=== PATIENT | female | born 1945 | race Caucasian/White ===

== ENCOUNTER 2017-08-08 08:52 | Inpatient (IN) | payer MEDICARE, OTHER ==
[~2017-08-08 08:52] MED LIST: Bisacodyl 5 MG Tab PO PRN; Docusate Sodium 100 MG Cap PO PRN; HYDROmorphone 0.5 MG/0.5 ML Syringe IVPUSH PRN; Lidocaine 1%/Sod Bicarbonate in NS 8.4% 1 ML Syringe IV PRN; Magnesium Hydroxide 400 MG/5 ML Susp 30 ML Cup PO PRN; Naloxone 0.4 MG/ML SDV IVPUSH PRN; Sennosides 8.6 MG Tab PO PRN; Sodium Chloride 0.9% 10 ML Syringe FLUSH PRN; diphenhydrAMINE 50 MG/ML SDV IVPUSH PRN
[2017-08-08] MEDS: Lactated Ringers 1,000 ML IV SCH ×3 (09:35→21:15)
[2017-08-08] MEDS ORDERED: fentaNYL 100 MCG/2 ML SDV ONE (09:50)
[2017-08-08] MEDS ORDERED: Propofol 200 MG/20 ML SDV ONE ×3 (09:50→12:33)
[2017-08-08] MEDS ORDERED: Midazolam 1 MG/ML 2 ML SDV ONE (09:51)
[2017-08-08] MEDS ORDERED: Lidocaine 1% 4 ML ONE (09:53)
[2017-08-08] MEDS ORDERED: Morphine PF 10 MG/10 ML SDV ONE (09:56)
--- NOTE | 2017-08-08 09:56 | PCM.PREANE ---
Preanesthetic Assessment - Procedure Proposed Procedure: LTKA - Anesthesia/Transfusion/Family Hx Anesthesia History: Prior Anesthesia Without Reaction Family History of Anesthesia Reaction: No Transfusion History: No Prior Transfusion(s) Intubation History: Unknown - Review of Systems General: No Symptoms Pulmonary: No Symptoms Cardiovascular: No Symptoms Gastrointestinal: No Symptoms, Other Neurological: No Symptoms, Headache Other: Reports: None - Physical Assessment NPO Status Date: 08/07/17 NPO Status Time: 22:30 Pulse: 85 O2 Sat by Pulse Oximetry: 98 Respiratory Rate: 16 Blood Pressure: 155/87 Temperature: 98.7 F Vital Signs: Last Vital Signs Temp 98.9 F 08/08/17 09:10 Pulse 85 08/08/17 09:10 Resp 16 08/08/17 09:10 BP 155/87 H 08/08/17 09:10 Pulse Ox 98 08/08/17 09:10 ASA Class: 2 Mental Status: Alert & Oriented x3 Dentition: Reports: Normal Dentition ROM/Head Extension: Full Lungs: Clear to Auscultation, Normal Respiratory Effort Cardiovascular: Regular Rate, Regular Rhythm - Lab Values: Laboratory Last Values MRSA (PCR) Negative 07/26/17 09:25 - Allergies Allergies/Adverse Reactions: Allergies Allergy/AdvReac Type Severity Reaction Status Date / Time amoxicillin AdvReac Nausea and Verified 08/08/17 07:06 Vomiting erythromycin base AdvReac Nausea and Verified 08/08/17 07:06 Vomiting morphine AdvReac Anxiety Verified 08/08/17 07:06 neomycin AdvReac Nausea Verified 08/08/17 07:06 - Blood Blood Available: Yes - Anesthesia Plan Beta Julian: Metoprolol Med Last Dose Date: 08/08/17 Med Last Dose Time: 05:00 - Acknowledgements Anesthesia Type Planned: Spinal Pt an Appropriate Candidate for the Planned Anesthesia: Yes Alternatives and Risks of Anesthesia Discussed w Pt/Guardian: Yes Pt/Guardian Understands and Agrees with Anesthesia Plan: Yes PreAnesthesia Questionnaire HEENT History: Reports: Impaired Vision, Other (See Below) Other HEENT History: impacted cerumen, reading glasses Cardiovascular History: Reports: High Cholesterol, Hypertension Respiratory History: Reports: None Gastrointestinal History: Reports: GERD, Irritable Bowel Syndrome, Other (See Below) Other Gastrointestinal History: abdominal adhesions Genitourinary History: Reports: UTI, Recurrent 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 (See Below) Other OB/BYN History: vaginitis, ovarian cyst Musculoskeletal History: Reports: Arthritis, Other (See Below) Other Musculoskeletal History: leg pain, knee pain Neurological History: Reports: Migraines Psychiatric History: Reports: None Endocrine/Metabolic History: Reports: None Hematologic History: Reports: None Immunologic History: Reports: None Oncologic (Cancer) History: Reports: None Dermatologic History: Reports: Other (See Below) Other Dermatologic History: periorbital dermatitis - Past Surgical History Head Surgeries/Procedures: Reports: None Cardiovascular Surgical History: Reports: None Respiratory Surgical History: Reports: None GI Surgical History: Reports: Appendectomy, Cholecystectomy, Other (See Below) Other GI Surgeries/Procedures: repair of leaky bile duct, exploratory laparotomy Female Surgical History: Reports: Section, Tubal Ligation Male Surgical History: Reports: None Endocrine Surgical History: Reports: None Neurological Surgical History: Reports: None Musculoskeletal Surgical History: Reports: Knee Replacement Oncologic Surgical History: Reports: None - SUBSTANCE USE Smoking Status *Q: Never Smoker Second Hand Smoke Exposure: No Recreational Drug Use History: No - HOME MEDS Home Medications: Home Meds Aspirin 81 mg PO DAILY 08/05/17 [History] Biotin 5,000 mcg PO DAILY 08/05/17 [History] Ca Carbonate/Vitamin D3/Vit K [Calcium + D Soft Chewable Tab] 2 tab PO DAILY [History] Losartan/Hydrochlorothiazide [Losartan-HCTZ 100-12.5 MG] 1 tab PO DAILY [History] Metoprolol Succinate 25 mg PO DAILY 08/05/17 [History] Omeprazole 20 mg PO DAILY 08/05/17 [History] atorvaSTATin [Lipitor] 10 mg PO DAILY 08/05/17 [History] - CURRENT (IN HOUSE) MEDS Current Meds: Current Medications Aspirin (Ecotrin) 325 mg PO BID CHARLES Bisacodyl (Dulcolax) 5 mg PO DAILY PRN PRN Reason: Constipation Morphine Sulfate 8 mg/Epinephrine HCl 0.3 mg/Cefuroxime Sodium 750 mg/Ketorolac Tromethamine 30 mg/Sodium Chloride 27.9 ml 0 mg .XX ONETIME ONE Stop: 08/08/17 10:46 Cyclobenzaprine HCl (Flexeril) 10 mg PO TID PRN PRN Reason: Spasms Diphenhydramine HCl (Benadryl) 25 mg IVPUSH Q4H PRN PRN Reason: Nausea Docusate Sodium (Colace) 100 mg PO BID PRN PRN Reason: Constipation Famotidine (Pepcid) 20 mg PO Q12H [facility] Hydromorphone HCl (Dilaudid) 0.2 mg IVPUSH Q2H PRN PRN Reason: Breakthrough Pain Lactated Ringer's (Ringers, Lactated) 1,000 mls @ 125 mls/hr IV ASDIRECTED [facility] Cefazolin Sodium/Dextrose 2 gm (/ Premix) 50 mls @ 100 mls/hr IV Q8H [facility] Stop: 08/09/17 09:59 Ketorolac Tromethamine (Toradol) 15 mg IVPUSH Q6H PRN PRN Reason: Pain Lidocaine/Sodium Bicarbonate (Buffered Lidocaine 1% In Ns 8.4%) 0.25 ml IV ONETIME PRN PRN Reason: Prior to IV Start Stop: 08/08/17 18:00 Magnesium Hydroxide (Milk Of Magnesia) 30 ml PO BID PRN PRN Reason: Constipation Naloxone HCl (Narcan) 0.1 mg IVPUSH Q5M PRN PRN Reason: Oversedation Ondansetron HCl (Zofran) 4 mg IVPUSH Q6H PRN PRN Reason: Nausea/Vomiting Oxycodone/Acetaminophen (Percocet 325-5 Mg) 1 - 2 tab PO Q4H PRN PRN Reason: Pain Senna (Senna) 8.6 mg PO BID PRN PRN Reason: Constipation Sodium Chloride (Saline Flush) 10 ml FLUSH ASDIRECTED PRN PRN Reason: Keep Vein Open Discontinued Medications Bupivacaine HCl (Marcaine 0.25%) Confirm Administered Dose 30 ml .ROUTE .STK- MED ONE Stop: 08/08/17 09:27 Cefazolin Sodium (Ancef) Confirm Administered Dose 2 gm .ROUTE .STK-MED ONE Stop: 08/08/17 09:27 Fentanyl (Sublimaze) Confirm Administered Dose 100 mcg .ROUTE .STK-MED ONE Stop: 08/08/17 09:51 Lidocaine HCl (Xylocaine-Mpf 1%) Confirm Administered Dose 4 mls @ as directed .ROUTE .STK-MED ONE Stop: 08/08/17 09:54 Iodine (Iodine 2% Mild Tincture) Confirm Administered Dose 30 ml .ROUTE .STK- MED ONE Stop: 08/08/17 09:27 Midazolam HCl (Versed 1 Mg/Ml) Confirm Administered Dose 2 mg .ROUTE .STK-MED ONE Stop: 08/08/17 09:52 Morphine Sulfate (Duramorph Pf) Confirm Administered Dose 10 mg .ROUTE .STK-MED ONE Stop: 08/08/17 09:57 Propofol (Diprivan 20 Ml) Confirm Administered Dose 400 mg .ROUTE .STK-MED ONE Stop: 08/08/17 09:51 Propofol (Diprivan 20 Ml) Confirm Administered Dose 200 mg .ROUTE .STK-MED ONE Stop: 08/08/17 09:52 Tranexamic Acid (Cyklokapron) Confirm Administered Dose 1,000 mg .ROUTE .STK- MED ONE Stop: 08/08/17 09:27 Vancomycin HCl (Vancomycin) Confirm Administered Dose 1 gm .ROUTE .STK-MED ONE Stop: 08/08/17 09:27
[2017-08-08] MEDS ORDERED: Lactated Ringers 1,000 ML ONE ×2 (11:15)
[2017-08-08] MEDS: Bupivacaine 0.25% 30 ML SDV ONE ×2 (11:51→12:16)
[2017-08-08] MEDS: ceFAZolin 1 GM Vial ONE ×2 (11:52→12:11)
[2017-08-08] MEDS: Morphine 8 MG, EPINEPHrine 0.3 MG, Cefuroxime 750 MG, Ketorolac 30 MG, Sodium Chloride ... ONE ×10 (11:52→12:15)
[2017-08-08] MEDS: Vancomycin 1 GM SDV ONE ×2 (11:53→12:18)
[2017-08-08] MEDS: Iodine/Sodium Iodide 2% Tincture 30 ML Bottle ONE ×2 (11:54→12:06)
[2017-08-08] MEDS ORDERED: Meperidine PF 50 MG/ML Syringe IVPUSH PRN (12:04)
[2017-08-08] MEDS ORDERED: Ondansetron 4 MG/2 ML SDV IVPUSH PRN (12:04)
[2017-08-08] MEDS ORDERED: fentaNYL 100 MCG/2 ML SDV IVPUSH PRN (12:04)
[2017-08-08] MEDS ORDERED: Phenylephrine 1% 10 MG/ML SDV ONE (12:30)
--- NOTE | 2017-08-08 13:04 | PCM.POSTAN ---
POST ANESTHESIA ASSESSMENT - MENTAL STATUS Mental Status: Alert, Oriented - VITAL SIGNS Pulse Rate: 77 SaO2: 100 Resp Rate: 12 Blood Pressure: 101/51 Temperature: 97.8 F - RESPIRATORY Respiratory Status: Respiratory Rate WNL, Airway Patent, O2 Saturation Stable - CARDIOVASCULAR CV Status: Pulse Rate WNL, Blood Pressure Stable - GASTROINTESTINAL GI Status: No Symptoms - PAIN Pain Score: 0 - POST OP HYDRATION Hydration Status: Adequate & Stable
--- NOTE | 2017-08-08 15:00 | CR ---
Left knee: AP and lateral views of the left knee were obtained. Comparison: No previous study. Left knee prosthesis is seen. Components are aligned. Underlying bony structures are intact. Soft tissue air is noted from the surgical procedure. Underlying bony structures are intact. Impression: 1. Satisfactory radiographic appearance of recently placed left knee prosthesis. Diagnostic code #2
[2017-08-08] MEDS ORDERED: Pneumococcal Polyvalent-23 Vaccine 0.5 ML SDV IM ONE (15:08)
[2017-08-08] MEDS: Cyclobenzaprine 10 MG Tab PO PRN (15:17)
[2017-08-08] MEDS: Ketorolac 15 MG/ML SDV IVPUSH PRN ×2 (15:17→21:15)
--- NOTE | 2017-08-08 16:40 | PCM.CONS ---
H&P History of Present Illness - General Date of Service: 08/08/17 Admit Problem/Dx: Admission Diagnosis/Problem Admission Diagnosis/Problem Osteoarthritis of knee Source of Information: Patient, Old Records, Provider, RN History Limitations: Reports: No Limitations - History of Present Illness Initial Comments - Free Text/Narative: Joi Larsen is a 72 yo female pt. of Dr. Christopher who is post-op day 0 of left TKA. Hospital medicine has been consulted for post-operative medical management. At this time she is resting in bed comfortably. She denies any current chest pain, palpitations, shortness of breath, nausea, or vomiting, although she reports she was slightly nauseated after receiving her last pain pill. She carries a history of: osteoarthritis, osteoporosis, HLD, HTN, GERD, irritable bowel syndrome, abdominal adhesions, recurrent UTIs, arthritis, bilateral knee pain, migraines, and prior right TKA. She was never a smoker. She is a full code. - Related Data Allergies/Adverse Reactions: Allergies Allergy/AdvReac Type Severity Reaction Status Date / Time amoxicillin AdvReac Nausea and Verified 08/08/17 10:14 Vomiting erythromycin base AdvReac Nausea and Verified 08/08/17 10:14 Vomiting morphine AdvReac Anxiety Verified 08/08/17 10:14 neomycin AdvReac Nausea Verified 08/08/17 10:14 Home Medications: Home Meds Aspirin 81 mg PO DAILY 08/05/17 [History] Biotin 5,000 mcg PO DAILY 08/05/17 [History] Ca Carbonate/Vitamin D3/Vit K [Calcium + D Soft Chewable Tab] 2 tab PO DAILY [History] Losartan/Hydrochlorothiazide [Losartan-HCTZ 100-12.5 MG] 1 tab PO DAILY [History] Metoprolol Succinate 25 mg PO DAILY 08/05/17 [History] Omeprazole 20 mg PO DAILY 08/05/17 [History] atorvaSTATin [Lipitor] 10 mg PO DAILY 08/05/17 [History] Past Medical History HEENT History: Reports: Impaired Vision, Other (See Below) Other HEENT History: impacted cerumen, reading glasses Cardiovascular History: Reports: High Cholesterol, Hypertension Respiratory History: Reports: None Gastrointestinal History: Reports: GERD, Irritable Bowel Syndrome, Other (See Below) Other Gastrointestinal History: abdominal adhesions Genitourinary History: Reports: UTI, Recurrent 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: Other (See Below) Other OB/BYN History: vaginitis, ovarian cyst Musculoskeletal History: Reports: Arthritis, Other (See Below) Other Musculoskeletal History: leg pain, knee pain Neurological History: Reports: Migraines Psychiatric History: Reports: None Endocrine/Metabolic History: Reports: None Hematologic History: Reports: None Immunologic History: Reports: None Oncologic (Cancer) History: Reports: None Dermatologic History: Reports: Other (See Below) Other Dermatologic History: periorbital dermatitis - Past Surgical History Head Surgeries/Procedures: Reports: None Cardiovascular Surgical History: Reports: None Respiratory Surgical History: Reports: None GI Surgical History: Reports: Appendectomy, Cholecystectomy, Other (See Below) Other GI Surgeries/Procedures: repair of leaky bile duct, exploratory laparotomy Female Surgical History: Reports: Section, Tubal Ligation Male Surgical History: Reports: None Endocrine Surgical History: Reports: None Neurological Surgical History: Reports: None Musculoskeletal Surgical History: Reports: Knee Replacement Oncologic Surgical History: Reports: None Social & Family History - Tobacco Use Smoking Status *Q: Never Smoker Second Hand Smoke Exposure: No - Caffeine Use Caffeine Use: Reports: Coffee - Recreational Drug Use Recreational Drug Use: No Drug Use in Last 12 Months: No H&P Review of Systems - Review of Systems: Review Of Systems: See Below General: Reports: No Symptoms HEENT: Reports: No Symptoms Pulmonary: Reports: No Symptoms Cardiovascular: Reports: No Symptoms Gastrointestinal: Reports: No Symptoms Genitourinary: Reports: No Symptoms Musculoskeletal: Reports: Joint Pain (Left knee 03/26. ) Skin: Reports: No Symptoms Psychiatric: Reports: No Symptoms Neurological: Reports: No Symptoms Hematologic/Lymphatic: Reports: No Symptoms Immunologic: Reports: No Symptoms Exam - Exam Exam: See Below - Vital Signs Vital Signs: Last Vital Signs Temp 97.9 F 08/08/17 15:29 Pulse 71 08/08/17 15:29 Resp 16 08/08/17 15:29 BP 146/90 H 08/08/17 15:29 Pulse Ox 99 08/08/17 15:29 Weight: 158 lb - Exam Quality Assessment: Urinary Catheter, DVT Prophylaxis General: Alert, Oriented, Cooperative HEENT: Conjunctiva Clear, EACs Clear, Hearing Intact, Mucosa Moist & [place], Nares Patent, Posterior Pharynx Clear, Pupils Equal, Pupils Reactive Neck: Supple, Trachea Midline. No: JVD Lungs: Clear to Auscultation, Normal Respiratory Effort Cardiovascular: Regular Rate, Regular Rhythm GI/Abdominal Exam: Normal Bowel Sounds, Soft, Non-Tender, No Organomegaly, No Abnormal Bruit, No Mass (Female) Exam: Deferred Rectal (Female) Exam: Deferred Back Exam: Normal Inspection, Full Range of Motion Extremities: No Pedal Edema, Normal Capillary Refill, Other (SRAVAN bandage on left leg. Bandage is dry and intact. ) Peripheral Pulses: 2+: Radial (L), Radial (R), Posterior Tibial (L), Dorsalis Pedis (L), Dorsalis Pedis (R) Skin: Warm, Dry, Intact Neurological: Cranial Nerves Intact (Grossly ) Neuro Extensive - Mental Status: Alert, Oriented x3, Normal Mood/Affect, Normal Cognition, Memory Intact Neuro Extensive - Motor, Sensory, Reflexes: CN II-XII Intact (Grossly ) Psychiatric: Alert, Normal Affect, Normal Mood Physical Exam Comments:: patient examined while lying in bed. Catheter remains in place. She is not on oxygen at this time. Consult PN Assessment/Plan POD#: 0 Procedures: Procedures ASSAY OF PREALBUMIN (07/13/17) ASSAY OF SERUM ALBUMIN (07/13/17) ASSAY THYROID STIM HORMONE (11/10/16) BONE IMAGING 3 PHASE (06/28/17) C-REACTIVE PROTEIN (07/13/17) CHEST X-RAY 2VW FRONTAL&LATL (07/22/17) COMPLETE CBC AUTOMATED (07/13/17) COMPLETE CBC W/AUTO DIFF WBC (12/06/16) COMPREHEN METABOLIC PANEL (12/06/16) DXA BONE DENSITY AXIAL (11/26/16) LIPID PANEL (11/10/16) MANUAL THERAPY 1/> REGIONS (05/03/16) MASSAGE THERAPY (05/03/16) METABOLIC PANEL TOTAL CA (07/13/17) MICROBE SUSCEPTIBLE DIFFUSE (03/18/17) MICROBE SUSCEPTIBLE DISK (03/18/17) OFFICE/OUTPATIENT VISIT EST (01/13/17) PROTHROMBIN TIME (07/13/17) PT EVALUATION (05/03/16) ROUTINE VENIPUNCTURE (07/13/17) SMEAR WET MOUNT SALINE/INK (03/18/17) THERAPEUTIC EXERCISES (05/03/16) THROMBOPLASTIN TIME PARTIAL (07/13/17) TRICHOMONAS ASSAY W/OPTIC (03/18/17) URINALYSIS AUTO W/O SCOPE (11/10/16) URINALYSIS AUTO W/SCOPE (07/14/17) URINE BACTERIA CULTURE (03/18/17) URINE CULTURE/COLONY COUNT (04/27/17) (1) S/P total knee arthroplasty SNOMED Code(s): 1478435655525, 6807865045001 Code(s): Z96.659 - PRESENCE OF UNSPECIFIED ARTIFICIAL KNEE JOINT Priority: High Current Visit: Yes Qualifiers: Laterality: left Qualified Code(s): Z96.652 - Presence of left artificial knee joint (2) Osteoarthritis SNOMED Code(s): 529624016 Code(s): M19.90 - UNSPECIFIED OSTEOARTHRITIS, UNSPECIFIED SITE Priority: High Current Visit: Yes Qualifiers: Osteoarthritis location: knee Osteoarthritis type: primary Laterality: left Qualified Code(s): M17.12 - Unilateral primary osteoarthritis, left knee (3) Adult idiopathic generalized osteoporosis SNOMED Code(s): 365568416 Code(s): M81.8 - OTHER OSTEOPOROSIS WITHOUT CURRENT PATHOLOGICAL FRACTURE Priority: Medium Current Visit: Yes (4) GERD (gastroesophageal reflux disease) SNOMED Code(s): 989280357 Code(s): K21.9 - GASTRO-ESOPHAGEAL REFLUX DISEASE WITHOUT ESOPHAGITIS Priority: Low Current Visit: Yes (5) HTN (hypertension) SNOMED Code(s): 86808321 Code(s): I10 - ESSENTIAL (PRIMARY) HYPERTENSION Priority: Low Current Visit: Yes Qualifiers: Hypertension type: essential hypertension Qualified Code(s): I10 - Essential (primary) hypertension (6) HLD (hyperlipidemia) SNOMED Code(s): 74029615 Code(s): E78.5 - HYPERLIPIDEMIA, UNSPECIFIED Priority: Low Current Visit : No Qualifiers: Hyperlipidemia type: unspecified Qualified Code(s): E78.5 - Hyperlipidemia , unspecified (7) IBS (irritable bowel syndrome) SNOMED Code(s): 95852301 Code(s): K58.9 - IRRITABLE BOWEL SYNDROME WITHOUT DIARRHEA Priority: Low Current Visit: Yes Qualifiers: Irritable bowel syndrome type: unspecified Qualified Code(s): K58.9 - Irritable bowel syndrome without diarrhea Problem List Initiated/Reviewed/Updated: Yes Plan: I/P: Acute: S/P left TKA post-operative day 0 -DVT and pain management per primary team -IS/RT -PT/OT -Monitor oxygen saturations -O2 as needed -Vital signs stable Osteoarthritis of the knee -Pain management as above Chronic: Osteoporosis HLD HTN GERD irritable bowel syndrome abdominal adhesions recurrent UTIs arthritis bilateral knee pain migraines prior right TKA Plan: CM/SW for discharge planning Other orders as listed above GI prophylaxis Home medications as indicated Routine AM labs Thank you for allowing us to participate in the care of this patient! Requesting Provider: Dr. Christopher Date Consult Requested: 08/08/17 Reason for Consult: Post-operative management Patient History Reviewed: Yes Admission H&P Reviewed: Yes Notified Requestor: Yes Time Spent (in minutes): 40
[2017-08-08] MEDS: Ondansetron 4 MG/2 ML SDV IVPUSH PRN (17:11)
--- NOTE | 2017-08-08 17:22 | PCM.OPNOTE ---
- General Post-Op/Procedure Note Date of Surgery/Procedure: 08/08/17 Operative Procedure(s): left total knee arthroplasty Pre Op Diagnosis: left knee osteoarthrosis Post-Op Diagnosis: Same Anesthesia Technique: Local, MAC, Spinal Primary Surgeon: Sebastien Christopher Anesthesia Provider: Ravin Lopez Retirement Actuary: Amelia Rodriguez Retirement Actuary: Trudy Vargas EBL in mLs: 200 Complications: None Condition: Good Free Text/Narrative:: Intake & Output 08/08/17 08/08/17 08/08/17 06:59 14:59 22:59 Intake Total 200 1400 Output Total 235 300 Balance -35 1100 size 4 femur size 3 tibia 9mm 29x9
[2017-08-08] MEDS: ceFAZolin 2 GM in Premix Bag 1 BAG IV SCH (17:34)
[2017-08-08] MEDS: Famotidine 20 MG Tab PO SCH (21:15)
[2017-08-08] MEDS ORDERED: Aluminum Hydroxide/Magnesium Hydroxide/Simethicone Susp 30 ML Cup PO PRN (23:13)
[2017-08-08] MEDS: Acetaminophen/oxyCODONE 325-5 MG Tab PO PRN (23:24)
[2017-08-09] MEDS: Cyclobenzaprine 10 MG Tab PO PRN ×2 (01:31→10:55)
[2017-08-09] MEDS: ceFAZolin 2 GM in Premix Bag 1 BAG IV SCH ×2 (01:32→10:10)
[2017-08-09] MEDS: Ketorolac 15 MG/ML SDV IVPUSH PRN (03:13)
[2017-08-09] MEDS: Ondansetron 4 MG/2 ML SDV IVPUSH PRN (04:49)
[2017-08-09] MEDS: Acetaminophen/oxyCODONE 325-5 MG Tab PO PRN ×3 (04:49→12:49)
--- NOTE | 2017-08-09 08:14 | PCM.CONSN ---
- General Info Date of Service: 08/09/17 Admission Dx/Problem (Free Text): Admission Diagnosis/Problem Admission Diagnosis/Problem Osteoarthritis of knee POD #1 s/p Lt TKA with Dr. Christopher No further nausea. Pain controlled. Working with PT; doing well. VSS; hgb 9.1 this am Functional Status: Reports: Pain Controlled, Tolerating Diet, Ambulating, Urinating, Incentive Spirometry. Denies: New Symptoms - Review of Systems General: Reports: No Symptoms HEENT: Reports: No Symptoms Pulmonary: Reports: No Symptoms Cardiovascular: Reports: No Symptoms Gastrointestinal: Reports: No Symptoms Genitourinary: Reports: No Symptoms Musculoskeletal: Reports: Leg Pain Skin: Reports: No Symptoms Neurological: Reports: No Symptoms Psychiatric: Reports: No Symptoms - Patient Data Vitals - Most Recent: Last Vital Signs Temp 99.0 F 08/09/17 01:38 Pulse 75 08/08/17 19:37 Resp 15 08/09/17 06:57 BP 109/49 L 08/09/17 01:38 Pulse Ox 92 L 08/09/17 06:57 Weight - Most Recent: 158 lb I&O - Last 24 Hours: Intake & Output 08/08/17 08/09/17 08/09/17 22:59 06:59 14:59 Intake Total 1800 400 Output Total 625 375 Balance 1175 25 Lab Results Last 24 Hours: Laboratory Results - last 24 hr 08/09/17 08/09/17 Range/Units 06:10 06:10 WBC 12.31 H (3.98-10.04) K/mm3 RBC 3.23 L (3.98-5.22) M/mm3 Hgb 9.1 L (11.2-15.7) gm/L Hct 28.1 L (34.1-44.9) % MCV 87.0 (79.4-94.8) fl MCH 28.2 (25.6-32.2) pg MCHC 32.4 (32.2-35.5) g/dl RDW Std Deviation 39.3 (36.4-46.3) fL Plt Count 187 (182-369) K/mm3 MPV 9.4 (9.4-12.3) fl Sodium 136 (136-145) mEq/L Potassium 3.7 (3.5-5.1) mEq/L Chloride 101 (98-107) mEq/L Carbon Dioxide 28 (21-32) mEq/L Anion Gap 10.7 (5-15) BUN 16 (7-18) mg/dL Creatinine 0.7 (0.55-1.02) mg/dL Est Cr Clr Drug Dosing 56.61 mL/min Estimated GFR (MDRD) > 60 (>60) mL/min BUN/Creatinine Ratio 22.9 H (14-18) Glucose 125 H (83-115) mg/dL Calcium 8.0 L (8.5-10.1) mg/dL Total Bilirubin 0.5 (0.2-1.0) mg/dL AST 60 H (15-37) U/L ALT 69 H (14-59) U/L Alkaline Phosphatase 76 (46-116) U/L Total Protein 5.2 L (6.4-8.2) g/dl Albumin 2.5 L (3.4-5.0) g/dl Globulin 2.7 gm/dL Albumin/Globulin Ratio 0.9 L (1-2) Med Orders - Current: Current Medications Al Hydroxide/Mg Hydroxide (Mag-Al Plus) 30 ml PO Q6H PRN PRN Reason: Heartburn Last Admin: 08/08/17 23:21 Dose: 30 ml Aspirin (Ecotrin) 325 mg PO BID CHARLES Bisacodyl (Dulcolax) 5 mg PO DAILY PRN PRN Reason: Constipation Cyclobenzaprine HCl (Flexeril) 10 mg PO TID PRN PRN Reason: Spasms Last Admin: 08/09/17 01:31 Dose: 10 mg Diphenhydramine HCl (Benadryl) 25 mg IVPUSH Q4H PRN PRN Reason: Nausea Docusate Sodium (Colace) 100 mg PO BID PRN PRN Reason: Constipation Famotidine (Pepcid) 20 mg PO Q12H [facility] Last Admin: 08/08/17 21:15 Dose: 20 mg Hydrochlorothiazide (Hydrochlorothiazide) 12.5 mg PO DAILY [facility] Hydromorphone HCl (Dilaudid) 0.2 mg IVPUSH Q2H PRN PRN Reason: Breakthrough Pain Lactated Ringer's (Ringers, Lactated) 1,000 mls @ 125 mls/hr IV ASDIRECTED [facility] Last Admin: 08/08/17 21:15 Dose: 125 mls/hr Cefazolin Sodium/Dextrose 2 gm (/ Premix) 50 mls @ 100 mls/hr IV Q8H [facility]LES Stop: 08/09/17 09:59 Last Admin: 08/09/17 01:32 Dose: 100 mls/hr Losartan Potassium (Cozaar) 100 mg PO DAILY [facility]LES Magnesium Hydroxide (Milk Of Magnesia) 30 ml PO BID PRN PRN Reason: Constipation Metoprolol Succinate (Toprol Xl) 25 mg PO DAILY [facility] Naloxone HCl (Narcan) 0.1 mg IVPUSH Q5M PRN PRN Reason: Oversedation Ondansetron HCl (Zofran) 4 mg IVPUSH Q6H PRN PRN Reason: Nausea/Vomiting Last Admin: 08/09/17 04:49 Dose: 4 mg Oxycodone/Acetaminophen (Percocet 325-5 Mg) 1 - 2 tab PO Q4H PRN PRN Reason: Pain Last Admin: 08/09/17 04:49 Dose: 2 tab Senna (Senna) 8.6 mg PO BID PRN PRN Reason: Constipation Sodium Chloride (Saline Flush) 10 ml FLUSH ASDIRECTED PRN PRN Reason: Keep Vein Open Discontinued Medications Bupivacaine HCl (Marcaine 0.25%) Confirm Administered Dose 30 ml .ROUTE .STK- MED ONE Stop: 08/08/17 09:27 Last Admin: 08/08/17 12:16 Dose: 30 ml Cefazolin Sodium (Ancef) Confirm Administered Dose 2 gm .ROUTE .STK-MED ONE Stop: 08/08/17 09:27 Last Admin: 08/08/17 12:11 Dose: 2 gm Morphine Sulfate 8 mg/Epinephrine HCl 0.3 mg/Cefuroxime Sodium 750 mg/Ketorolac Tromethamine 30 mg/Sodium Chloride 27.9 ml 0 mg .XX ONETIME ONE Stop: 08/08/17 10:46 Last Admin: 08/08/17 12:15 Dose: 788.3 mg Fentanyl (Sublimaze) Confirm Administered Dose 100 mcg .ROUTE .STK-MED ONE Stop: 08/08/17 09:51 Fentanyl (Sublimaze) 50 mcg IVPUSH Q5M PRN PRN Reason: Pain Stop: 08/08/17 14:00 Lidocaine HCl (Xylocaine-Mpf 1%) Confirm Administered Dose 4 mls @ as directed .ROUTE .STK-MED ONE Stop: 08/08/17 09:54 Lactated Ringer's (Ringers, Lactated) Confirm Administered Dose 1,000 mls @ as directed .ROUTE .STK-MED ONE Stop: 08/08/17 11:16 Lactated Ringer's (Ringers, Lactated) Confirm Administered Dose 1,000 mls @ as directed .ROUTE .STK-MED ONE Stop: 08/08/17 11:16 Iodine (Iodine 2% Mild Tincture) Confirm Administered Dose 30 ml .ROUTE .STK- MED ONE Stop: 08/08/17 09:27 Last Admin: 08/08/17 12:06 Dose: 18 ml Ketorolac Tromethamine (Toradol) 15 mg IVPUSH Q6H PRN PRN Reason: Pain Last Admin: 08/09/17 03:13 Dose: 15 mg Lidocaine/Sodium Bicarbonate (Buffered Lidocaine 1% In Ns 8.4%) 0.25 ml IV ONETIME PRN PRN Reason: Prior to IV Start Stop: 08/08/17 18:00 Last Admin: 08/08/17 09:34 Dose: 0.25 ml Meperidine HCl (Demerol) 12.5 mg IVPUSH ONETIME PRN PRN Reason: shivering Stop: 08/08/17 14:00 Midazolam HCl (Versed 1 Mg/Ml) Confirm Administered Dose 2 mg .ROUTE .STK-MED ONE Stop: 08/08/17 09:52 Morphine Sulfate (Duramorph Pf) Confirm Administered Dose 10 mg .ROUTE .STK-MED ONE Stop: 08/08/17 09:57 Ondansetron HCl (Zofran) 4 mg IVPUSH ONETIME PRN PRN Reason: Nausea/Vomiting Stop: 08/08/17 14:00 Phenylephrine HCl (Godfrey-Synephrine) Confirm Administered Dose 10 mg .ROUTE .STK- MED ONE Stop: 08/08/17 12:31 Pneumococcal Polyvalent Vaccine (Pneumovax 23) 0.5 ml IM .ONCE ONE Stop: 08/08/17 15:09 Propofol (Diprivan 20 Ml) Confirm Administered Dose 400 mg .ROUTE .STK-MED ONE Stop: 08/08/17 09:51 Propofol (Diprivan 20 Ml) Confirm Administered Dose 200 mg .ROUTE .STK-MED ONE Stop: 08/08/17 09:52 Propofol (Diprivan 20 Ml) Confirm Administered Dose 200 mg .ROUTE .STK-MED ONE Stop: 08/08/17 12:34 Tranexamic Acid (Cyklokapron) Confirm Administered Dose 1,000 mg .ROUTE .STK- MED ONE Stop: 08/08/17 09:27 Last Admin: 08/08/17 12:23 Dose: 1,000 mg Vancomycin HCl (Vancomycin) Confirm Administered Dose 1 gm .ROUTE .STK-MED ONE Stop: 08/08/17 09:27 Last Admin: 08/08/17 12:18 Dose: 1 gm - Exam Quality Assessment: DVT Prophylaxis General: Alert, Oriented, Cooperative, No Acute Distress HEENT: Pupils Equal, EOMI, Mucous Membr. Moist/[place] Neck: Supple Lungs: Clear to Auscultation, Normal Respiratory Effort Cardiovascular: Regular Rate, Regular Rhythm GI/Abdominal Exam: Normal Bowel Sounds, Soft, Non-Tender (Female) Exam: Deferred Extremities: No Pedal Edema, Normal Capillary Refill, Other (teds/SCD's bilat) Peripheral Pulses: 2+: Dorsalis Pedis (L), Dorsalis Pedis (R) Skin: Warm, Dry Wound/Incisions: Dressing Dry and Intact Neurological: No New Focal Deficit Psy/Mental Status: Alert, Normal Affect, Normal Mood Consult PN Assessment/Plan POD#: 1 Procedures: Procedures ASSAY OF PREALBUMIN (07/13/17) ASSAY OF SERUM ALBUMIN (07/13/17) ASSAY THYROID STIM HORMONE (11/10/16) BONE IMAGING 3 PHASE (06/28/17) C-REACTIVE PROTEIN (07/13/17) CHEST X-RAY 2VW FRONTAL&LATL (07/22/17) COMPLETE CBC AUTOMATED (07/13/17) COMPLETE CBC W/AUTO DIFF WBC (12/06/16) COMPREHEN METABOLIC PANEL (12/06/16) DXA BONE DENSITY AXIAL (11/26/16) LIPID PANEL (11/10/16) MANUAL THERAPY 1/> REGIONS (05/03/16) MASSAGE THERAPY (05/03/16) METABOLIC PANEL TOTAL CA (07/13/17) MICROBE SUSCEPTIBLE DIFFUSE (03/18/17) MICROBE SUSCEPTIBLE DISK (03/18/17) OFFICE/OUTPATIENT VISIT EST (01/13/17) PROTHROMBIN TIME (07/13/17) PT EVALUATION (05/03/16) ROUTINE VENIPUNCTURE (07/13/17) SMEAR WET MOUNT SALINE/INK (03/18/17) THERAPEUTIC EXERCISES (05/03/16) THROMBOPLASTIN TIME PARTIAL (07/13/17) TRICHOMONAS ASSAY W/OPTIC (03/18/17) URINALYSIS AUTO W/O SCOPE (11/10/16) URINALYSIS AUTO W/SCOPE (07/14/17) URINE BACTERIA CULTURE (03/18/17) URINE CULTURE/COLONY COUNT (04/27/17) (1) S/P total knee arthroplasty SNOMED Code(s): 5181289386850, 6977210760164 Code(s): Z96.659 - PRESENCE OF UNSPECIFIED ARTIFICIAL KNEE JOINT Priority: High Current Visit: Yes Qualifiers: Laterality: left Qualified Code(s): Z96.652 - Presence of left artificial knee joint (2) Osteoarthritis SNOMED Code(s): 246725494 Code(s): M19.90 - UNSPECIFIED OSTEOARTHRITIS, UNSPECIFIED SITE Priority: High Current Visit: Yes Qualifiers: Osteoarthritis location: knee Osteoarthritis type: primary Laterality: left Qualified Code(s): M17.12 - Unilateral primary osteoarthritis, left knee (3) HTN (hypertension) SNOMED Code(s): 85686019 Code(s): I10 - ESSENTIAL (PRIMARY) HYPERTENSION Priority: Low Current Visit: Yes Qualifiers: Hypertension type: essential hypertension Qualified Code(s): I10 - Essential (primary) hypertension (4) GERD (gastroesophageal reflux disease) SNOMED Code(s): 591920590 Code(s): K21.9 - GASTRO-ESOPHAGEAL REFLUX DISEASE WITHOUT ESOPHAGITIS Priority: Low Current Visit: Yes Qualifiers: Esophagitis presence: esophagitis presence not specified Qualified Code(s) : K21.9 - Gastro-esophageal reflux disease without esophagitis (5) HLD (hyperlipidemia) SNOMED Code(s): 92485500 Code(s): E78.5 - HYPERLIPIDEMIA, UNSPECIFIED Priority: Low Current Visit : No Qualifiers: Hyperlipidemia type: unspecified Qualified Code(s): E78.5 - Hyperlipidemia , unspecified (6) IBS (irritable bowel syndrome) SNOMED Code(s): 93174724 Code(s): K58.9 - IRRITABLE BOWEL SYNDROME WITHOUT DIARRHEA Priority: Low Current Visit: No Qualifiers: Irritable bowel syndrome type: unspecified Qualified Code(s): K58.9 - Irritable bowel syndrome without diarrhea (7) Adult idiopathic generalized osteoporosis SNOMED Code(s): 984285629 Code(s): M81.8 - OTHER OSTEOPOROSIS WITHOUT CURRENT PATHOLOGICAL FRACTURE Priority: Medium Current Visit: No Problem List Initiated/Reviewed/Updated: Yes Plan: I/P: S/P total knee arthroplasty, POD # 1, Dr. Christopher - Pain management and DVT prophylax - PT/OT - RT/IS - Hgb 9.1 Chronic conditions: Hypertension, stable Hyperlipidemia GERD Osteoporosis Osteoarthritis, see above IBS Other: GI Prophylax CM/SW for DC planning; patient doing well and is stable for discharge from hospitalist standpoint today Patient is for Code status.
[2017-08-09] MEDS: Famotidine 20 MG Tab PO SCH (08:55)
[2017-08-09] MEDS ORDERED: Aspirin 325 MG Tab.EC PO SCH (09:00)
[2017-08-09] MEDS ORDERED: Metoprolol Succinate 25 MG Tab.ER PO SCH (09:00)
[2017-08-09] MEDS ORDERED: Losartan 100 MG Tab PO SCH (09:00)
[2017-08-09] MEDS ORDERED: Hydrochlorothiazide 12.5 MG Cap PO SCH (09:00)
--- NOTE | 2017-08-09 09:43 | PCM48HPAN ---
Post Anesthesia Note - EVALUATION WITHIN 48HRS OF ANESTHETIC Vital Signs in Normal Range: Yes Patient Participated in Evaluation: Yes Respiratory Function Stable: Yes Airway Patent: Yes Cardiovascular Function Stable: Yes Hydration Status Stable: Yes Pain Control Satisfactory: Yes Nausea and Vomiting Control Satisfactory: Yes Mental Status Recovered: Yes - COMMENTS/OBSERVATIONS Free Text/Narrative:: Joi is noting some pain this morning. PO pain medications are working. The nurse is aware and bringing her some pain medications. She has been up ambulating in the hallway. Denies back pain. Denies headache. Denies numbness and tingling in lower extremities. No further questions. No complications noted.
--- NOTE | 2017-08-10 10:14 | PCM.SURGPN ---
- General Info Date of Service: 08/09/17 POD#: 1 Functional Status: Reports: Pain Controlled, Tolerating Diet, Ambulating, Urinating, Incentive Spirometry - Review of Systems Musculoskeletal: Reports: Other (The pt has met inpatient therapy goals.) - Patient Data Vitals - Most Recent: Last Vital Signs Temp 98.9 F 08/09/17 12:00 Pulse 85 08/09/17 12:00 Resp 16 08/09/17 12:00 BP 123/80 08/09/17 12:00 Pulse Ox 100 08/09/17 12:00 Weight - Most Recent: 158 lb Med Orders - Current: Current Medications Discontinued Medications Al Hydroxide/Mg Hydroxide (Mag-Al Plus) 30 ml PO Q6H PRN PRN Reason: Heartburn Last Admin: 08/08/17 23:21 Dose: 30 ml Aspirin (Ecotrin) 325 mg PO BID CHARLES Last Admin: 08/09/17 08:55 Dose: 325 mg Bisacodyl (Dulcolax) 5 mg PO DAILY PRN PRN Reason: Constipation Bupivacaine HCl (Marcaine 0.25%) Confirm Administered Dose 30 ml .ROUTE .STK- MED ONE Stop: 08/08/17 09:27 Last Admin: 08/08/17 12:16 Dose: 30 ml Cefazolin Sodium (Ancef) Confirm Administered Dose 2 gm .ROUTE .STK-MED ONE Stop: 08/08/17 09:27 Last Admin: 08/08/17 12:11 Dose: 2 gm Morphine Sulfate 8 mg/Epinephrine HCl 0.3 mg/Cefuroxime Sodium 750 mg/Ketorolac Tromethamine 30 mg/Sodium Chloride 27.9 ml 0 mg .XX ONETIME ONE Stop: 08/08/17 10:46 Last Admin: 08/08/17 12:15 Dose: 788.3 mg Cyclobenzaprine HCl (Flexeril) 10 mg PO TID PRN PRN Reason: Spasms Last Admin: 08/09/17 10:55 Dose: 10 mg Diphenhydramine HCl (Benadryl) 25 mg IVPUSH Q4H PRN PRN Reason: Nausea Docusate Sodium (Colace) 100 mg PO BID PRN PRN Reason: Constipation Famotidine (Pepcid) 20 mg PO Q12H [facility] Last Admin: 08/09/17 08:55 Dose: 20 mg Fentanyl (Sublimaze) Confirm Administered Dose 100 mcg .ROUTE .STK-MED ONE Stop: 08/08/17 09:51 Fentanyl (Sublimaze) 50 mcg IVPUSH Q5M PRN PRN Reason: Pain Stop: 08/08/17 14:00 Hydrochlorothiazide (Hydrochlorothiazide) 12.5 mg PO DAILY [facility] Last Admin: 08/09/17 08:55 Dose: 12.5 mg Hydromorphone HCl (Dilaudid) 0.2 mg IVPUSH Q2H PRN PRN Reason: Breakthrough Pain Lactated Ringer's (Ringers, Lactated) 1,000 mls @ 125 mls/hr IV ASDIRECTED [facility] Last Admin: 08/08/17 21:15 Dose: 125 mls/hr Cefazolin Sodium/Dextrose 2 gm (/ Premix) 50 mls @ 100 mls/hr IV Q8H [facility] Stop: 08/09/17 09:59 Last Admin: 08/09/17 10:10 Dose: 100 mls/hr Lidocaine HCl (Xylocaine-Mpf 1%) Confirm Administered Dose 4 mls @ as directed .ROUTE .STK-MED ONE Stop: 08/08/17 09:54 Lactated Ringer's (Ringers, Lactated) Confirm Administered Dose 1,000 mls @ as directed .ROUTE .STK-MED ONE Stop: 08/08/17 11:16 Lactated Ringer's (Ringers, Lactated) Confirm Administered Dose 1,000 mls @ as directed .ROUTE .STK-MED ONE Stop: 08/08/17 11:16 Iodine (Iodine 2% Mild Tincture) Confirm Administered Dose 30 ml .ROUTE .STK- MED ONE Stop: 08/08/17 09:27 Last Admin: 08/08/17 12:06 Dose: 18 ml Ketorolac Tromethamine (Toradol) 15 mg IVPUSH Q6H PRN PRN Reason: Pain Last Admin: 08/09/17 03:13 Dose: 15 mg Lidocaine/Sodium Bicarbonate (Buffered Lidocaine 1% In Ns 8.4%) 0.25 ml IV ONETIME PRN PRN Reason: Prior to IV Start Stop: 08/08/17 18:00 Last Admin: 08/08/17 09:34 Dose: 0.25 ml Losartan Potassium (Cozaar) 100 mg PO DAILY [facility] Last Admin: 08/09/17 08:56 Dose: 100 mg Magnesium Hydroxide (Milk Of Magnesia) 30 ml PO BID PRN PRN Reason: Constipation Meperidine HCl (Demerol) 12.5 mg IVPUSH ONETIME PRN PRN Reason: shivering Stop: 08/08/17 14:00 Metoprolol Succinate (Toprol Xl) 25 mg PO DAILY [facility] Last Admin: 08/09/17 08:56 Dose: 25 mg Midazolam HCl (Versed 1 Mg/Ml) Confirm Administered Dose 2 mg .ROUTE .STK-MED ONE Stop: 08/08/17 09:52 Morphine Sulfate (Duramorph Pf) Confirm Administered Dose 10 mg .ROUTE .STK-MED ONE Stop: 08/08/17 09:57 Naloxone HCl (Narcan) 0.1 mg IVPUSH Q5M PRN PRN Reason: Oversedation Ondansetron HCl (Zofran) 4 mg IVPUSH Q6H PRN PRN Reason: Nausea/Vomiting Last Admin: 08/09/17 04:49 Dose: 4 mg Ondansetron HCl (Zofran) 4 mg IVPUSH ONETIME PRN PRN Reason: Nausea/Vomiting Stop: 08/08/17 14:00 Oxycodone/Acetaminophen (Percocet 325-5 Mg) 1 - 2 tab PO Q4H PRN PRN Reason: Pain Last Admin: 08/09/17 12:49 Dose: 2 tab Phenylephrine HCl (Godfrey-Synephrine) Confirm Administered Dose 10 mg .ROUTE .STK- MED ONE Stop: 08/08/17 12:31 Pneumococcal Polyvalent Vaccine (Pneumovax 23) 0.5 ml IM .ONCE ONE Stop: 08/08/17 15:09 Last Admin: 08/09/17 11:04 Dose: Not Given Propofol (Diprivan 20 Ml) Confirm Administered Dose 400 mg .ROUTE .STK-MED ONE Stop: 08/08/17 09:51 Propofol (Diprivan 20 Ml) Confirm Administered Dose 200 mg .ROUTE .STK-MED ONE Stop: 08/08/17 09:52 Propofol (Diprivan 20 Ml) Confirm Administered Dose 200 mg .ROUTE .STK-MED ONE Stop: 08/08/17 12:34 Senna (Senna) 8.6 mg PO BID PRN PRN Reason: Constipation Sodium Chloride (Saline Flush) 10 ml FLUSH ASDIRECTED PRN PRN Reason: Keep Vein Open Tranexamic Acid (Cyklokapron) Confirm Administered Dose 1,000 mg .ROUTE .STK- MED ONE Stop: 08/08/17 09:27 Last Admin: 08/08/17 12:23 Dose: 1,000 mg Vancomycin HCl (Vancomycin) Confirm Administered Dose 1 gm .ROUTE .STK-MED ONE Stop: 08/08/17 09:27 Last Admin: 08/08/17 12:18 Dose: 1 gm - Exam Wound/Incisions: Dressing Dry and Intact General: Cooperative, No Acute Distress Lungs: Normal Respiratory Effort Extremities: Other (NVS intact for BLE. Monica's negative.) - Problem List Review Problem List Initiated/Reviewed/Updated: Yes - My Orders Last 24 Hours: Active Orders 24 hr Category Date Time Status Ready for Discharge [RC] PER UNIT ROUTINE Care 08/09/17 11:48 Active - Assessment Assessment (Free Text/Narrative):: POD#1 - left TKA - Plan Plan (Free Text/Narrative):: 1. Hgb 9.1. 2. Discharge to home today. 3. 325mg ASA BID, TEDs, frequent mobility. 4. Outpatient P.T. Dr. Christopher evaluated the pt today.
--- NOTE | 2017-08-10 10:19 | PCM.DCSUM1 ---
Discharge Summary - Hospital Course Brief History: Joi is a 72 yo female who underwent left TKA with Dr. Christopher on 08-08-2017. The procedure was completed under spinal anesthesia. The pt tolerated the procedure well and was admitted to the [facility] under Medical- Surgical status. Medical management was provided by the Hospitalist service. The pt's Hospital course was uneventful. The pt's Hgb on POD#1 was 9.1. On POD #1, 325mg ASA BID was initiated for VTE prophylaxis. SCDs and TEDs were also ordered. A Mepilex dressing was placed at the incision site at the time of surgery and remained clean and dry. The pt participated in P.T. and O.T. and progressed well. The pt was allowed to WBAT. On POD#1, the pt was deemed appropriate to discharge to home with her family. - Discharge Data Discharge Date: 08/09/17 Discharge Disposition: Home, Self-Care 01 Condition: Good - Patient Summary/Data Operative Procedure(s) Performed: left total knee arthroplasty Consults: Consultations 08/08/17 06:47 Consult to Physician [CONS] Routine OT Evaluation and Treatment [CONS] Routine 08/08/17 06:52 PT Evaluation and Treatment [CONS] Routine - Patient Instructions Diet: Usual Diet as Tolerated Activity: Apply Ice, As Tolerated, Elevate Extremity, Full Weight Bearing Driving: Do Not Drive Showering/Bathing: May Shower Wound/Incision Care: Keep Operative Site/Wound Site Clean and Dry, Do NOT Change Dressing Notify Provider of: Fever, Increased Pain, Swelling and Redness, Drainage, Nausea and/or Vomiting Other/Special Instructions: Please get up and moving around every hour while awake. This helps to prevent blood clots. Please use your walker and have help with mobility as needed. Please take a 325mg ASPIRIN TWICE DAILY. This also helps to prevent blood clots. The aspirin is being used for blood clot prevention and not for pain management, so please do not miss a dose of the medication. You may schedule for P.T. Use the pain medication as needed. The medication may cause drowsiness and constipation. Contact your primary care provider for instructions if you are constipated. You may use a stool softener like docusate sodium or Colace 100mg twice daily and/or a laxative like Miralax daily for constipation. Wear the RAVI hose during the day and you may remove these at night. Place ice to the knee often and elevate the limb to decrease swelling. Place a towel between your skin and the blue pad. Keep the Mepilex dressing in place until follow-up. Notify the Clinic if the dressing becomes saturated. Call the Clinic with questions or concerns - [phone]. - Discharge Plan Prescriptions/Med Rec: Acetaminophen/oxyCODONE [Percocet 325-5 MG] 1 - 2 tab PO Q4H PRN #60 tablet PRN Reason: Pain Aspirin [Ecotrin] 325 mg PO BID #84 tab.ec Cyclobenzaprine [Flexeril] 10 mg PO TID PRN #40 tablet PRN Reason: muscle spasms Home Medications: Home Meds Biotin 5,000 mcg PO DAILY 08/05/17 [History] Ca Carbonate/Vitamin D3/Vit K [Calcium + D Soft Chewable Tab] 2 tab PO DAILY [History] Losartan/Hydrochlorothiazide [Losartan-HCTZ 100-12.5 MG] 1 tab PO DAILY [History] Metoprolol Succinate 25 mg PO DAILY 08/05/17 [History] Omeprazole 20 mg PO DAILY 08/05/17 [History] atorvaSTATin [Lipitor] 10 mg PO DAILY 08/05/17 [History] Acetaminophen/oxyCODONE [Percocet 325-5 MG] 1 - 2 tab PO Q4H PRN #60 tablet [Rx] Alum Hydrox/Mag Hydrox/Simeth [Mag-Al Plus] 30 ml PO Q6H PRN cup 08/09/17 [Rx] Aspirin [Ecotrin] 325 mg PO BID #84 tab.ec 08/09/17 [Rx] Cyclobenzaprine [Flexeril] 10 mg PO TID PRN #40 tablet 08/09/17 [Rx] Patient Handouts: Total Knee Replacement, Care After, [id number], Total Knee Replacement, [id number], Aspirin, ASA oral tablets Referrals: Amelia Rodriguez PA-C [Physician Steward/Stewardess Second Class] - - Patient Data Vitals - Most Recent: Last Vital Signs Temp 98.9 F 08/09/17 12:00 Pulse 85 08/09/17 12:00 Resp 16 08/09/17 12:00 BP 123/80 08/09/17 12:00 Pulse Ox 100 08/09/17 12:00 Weight - Most Recent: 158 lb Med Orders - Current: Current Medications Discontinued Medications Al Hydroxide/Mg Hydroxide (Mag-Al Plus) 30 ml PO Q6H PRN PRN Reason: Heartburn Last Admin: 08/08/17 23:21 Dose: 30 ml Aspirin (Ecotrin) 325 mg PO BID [facility] Last Admin: 08/09/17 08:55 Dose: 325 mg Bisacodyl (Dulcolax) 5 mg PO DAILY PRN PRN Reason: Constipation Bupivacaine HCl (Marcaine 0.25%) Confirm Administered Dose 30 ml .ROUTE .STK- MED ONE Stop: 08/08/17 09:27 Last Admin: 08/08/17 12:16 Dose: 30 ml Cefazolin Sodium (Ancef) Confirm Administered Dose 2 gm .ROUTE .STK-MED ONE Stop: 08/08/17 09:27 Last Admin: 08/08/17 12:11 Dose: 2 gm Morphine Sulfate 8 mg/Epinephrine HCl 0.3 mg/Cefuroxime Sodium 750 mg/Ketorolac Tromethamine 30 mg/Sodium Chloride 27.9 ml 0 mg .XX ONETIME ONE Stop: 08/08/17 10:46 Last Admin: 08/08/17 12:15 Dose: 788.3 mg Cyclobenzaprine HCl (Flexeril) 10 mg PO TID PRN PRN Reason: Spasms Last Admin: 08/09/17 10:55 Dose: 10 mg Diphenhydramine HCl (Benadryl) 25 mg IVPUSH Q4H PRN PRN Reason: Nausea Docusate Sodium (Colace) 100 mg PO BID PRN PRN Reason: Constipation Famotidine (Pepcid) 20 mg PO Q12H [facility] Last Admin: 08/09/17 08:55 Dose: 20 mg Fentanyl (Sublimaze) Confirm Administered Dose 100 mcg .ROUTE .STK-MED ONE Stop: 08/08/17 09:51 Fentanyl (Sublimaze) 50 mcg IVPUSH Q5M PRN PRN Reason: Pain Stop: 08/08/17 14:00 Hydrochlorothiazide (Hydrochlorothiazide) 12.5 mg PO DAILY [facility] Last Admin: 08/09/17 08:55 Dose: 12.5 mg Hydromorphone HCl (Dilaudid) 0.2 mg IVPUSH Q2H PRN PRN Reason: Breakthrough Pain Lactated Ringer's (Ringers, Lactated) 1,000 mls @ 125 mls/hr IV ASDIRECTED [facility] Last Admin: 08/08/17 21:15 Dose: 125 mls/hr Cefazolin Sodium/Dextrose 2 gm (/ Premix) 50 mls @ 100 mls/hr IV Q8H [facility] Stop: 08/09/17 09:59 Last Admin: 08/09/17 10:10 Dose: 100 mls/hr Lidocaine HCl (Xylocaine-Mpf 1%) Confirm Administered Dose 4 mls @ as directed .ROUTE .STK-MED ONE Stop: 08/08/17 09:54 Lactated Ringer's (Ringers, Lactated) Confirm Administered Dose 1,000 mls @ as directed .ROUTE .STK-MED ONE Stop: 08/08/17 11:16 Lactated Ringer's (Ringers, Lactated) Confirm Administered Dose 1,000 mls @ as directed .ROUTE .STK-MED ONE Stop: 08/08/17 11:16 Iodine (Iodine 2% Mild Tincture) Confirm Administered Dose 30 ml .ROUTE .STK- MED ONE Stop: 08/08/17 09:27 Last Admin: 08/08/17 12:06 Dose: 18 ml Ketorolac Tromethamine (Toradol) 15 mg IVPUSH Q6H PRN PRN Reason: Pain Last Admin: 08/09/17 03:13 Dose: 15 mg Lidocaine/Sodium Bicarbonate (Buffered Lidocaine 1% In Ns 8.4%) 0.25 ml IV ONETIME PRN PRN Reason: Prior to IV Start Stop: 08/08/17 18:00 Last Admin: 08/08/17 09:34 Dose: 0.25 ml Losartan Potassium (Cozaar) 100 mg PO DAILY [facility] Last Admin: 08/09/17 08:56 Dose: 100 mg Magnesium Hydroxide (Milk Of Magnesia) 30 ml PO BID PRN PRN Reason: Constipation Meperidine HCl (Demerol) 12.5 mg IVPUSH ONETIME PRN PRN Reason: shivering Stop: 08/08/17 14:00 Metoprolol Succinate (Toprol Xl) 25 mg PO DAILY [facility] Last Admin: 08/09/17 08:56 Dose: 25 mg Midazolam HCl (Versed 1 Mg/Ml) Confirm Administered Dose 2 mg .ROUTE .STK-MED ONE Stop: 08/08/17 09:52 Morphine Sulfate (Duramorph Pf) Confirm Administered Dose 10 mg .ROUTE .STK-MED ONE Stop: 08/08/17 09:57 Naloxone HCl (Narcan) 0.1 mg IVPUSH Q5M PRN PRN Reason: Oversedation Ondansetron HCl (Zofran) 4 mg IVPUSH Q6H PRN PRN Reason: Nausea/Vomiting Last Admin: 08/09/17 04:49 Dose: 4 mg Ondansetron HCl (Zofran) 4 mg IVPUSH ONETIME PRN PRN Reason: Nausea/Vomiting Stop: 08/08/17 14:00 Oxycodone/Acetaminophen (Percocet 325-5 Mg) 1 - 2 tab PO Q4H PRN PRN Reason: Pain Last Admin: 08/09/17 12:49 Dose: 2 tab Phenylephrine HCl (Godfrey-Synephrine) Confirm Administered Dose 10 mg .ROUTE .STK- MED ONE Stop: 08/08/17 12:31 Pneumococcal Polyvalent Vaccine (Pneumovax 23) 0.5 ml IM .ONCE ONE Stop: 08/08/17 15:09 Last Admin: 08/09/17 11:04 Dose: Not Given Propofol (Diprivan 20 Ml) Confirm Administered Dose 400 mg .ROUTE .STK-MED ONE Stop: 08/08/17 09:51 Propofol (Diprivan 20 Ml) Confirm Administered Dose 200 mg .ROUTE .STK-MED ONE Stop: 08/08/17 09:52 Propofol (Diprivan 20 Ml) Confirm Administered Dose 200 mg .ROUTE .STK-MED ONE Stop: 08/08/17 12:34 Senna (Senna) 8.6 mg PO BID PRN PRN Reason: Constipation Sodium Chloride (Saline Flush) 10 ml FLUSH ASDIRECTED PRN PRN Reason: Keep Vein Open Tranexamic Acid (Cyklokapron) Confirm Administered Dose 1,000 mg .ROUTE .STK- MED ONE Stop: 08/08/17 09:27 Last Admin: 08/08/17 12:23 Dose: 1,000 mg Vancomycin HCl (Vancomycin) Confirm Administered Dose 1 gm .ROUTE .STK-MED ONE Stop: 08/08/17 09:27 Last Admin: 08/08/17 12:18 Dose: 1 gm *Q Meaningful Use (DIS) - VTE *Q VTE Criteria *Q: - Stroke *Q Stroke Criteria *Q: - AMI *Q AMI Criteria *Q:
--- NOTE | 2017-08-14 22:45 | OR ---
DATE OF OPERATION: 08/08/2017 SURGEON: Sebastien Christopher MD OPERATION PERFORMED: Left total knee arthroplasty. PREOPERATIVE DIAGNOSIS: Left knee osteoarthrosis. POSTOPERATIVE DIAGNOSIS: Left knee osteoarthrosis. ANESTHESIA: Local, MAC, spinal. ANESTHESIA PROVIDER: Sully Rodríguez MD. ASSISTANTS: Amelia Rodriguez PA-C and Trudy Vargas LPN. ESTIMATED BLOOD LOSS: 200 mL. COMPLICATIONS: None. CONDITION: Stable. IMPLANTS: 1. [place] size 4 PS femur. 2. [place] size 3 [place] tibial base plate. 3. 9 mm PS X3 polyethylene. 4. A 29 x 9 mm asymmetric patella. DESCRIPTION OF PROCEDURE: The patient was identified in the preop holding area, where the proper site was marked and identified by the surgeon. The patient was taken back to the operating theater where after adequate anesthesia, the patient's left lower extremity had a nonsterile tourniquet present and was sterilely prepped and draped in the usual sterile fashion. OR time-out was performed. The patient received 2 g IV Ancef. At this time, the left lower extremity was exsanguinated. Tourniquet was then insufflated to 250 mmHg. Standard anterior incision was made and medial parapatellar arthrotomy was created. Deep fibers of the MCL were raised and anterior fat pad was resected. Attention was turned to the patella. Patella measured at 22 and was resected to a 13 for a 29 x 9 mm patella. Drill holes were then drilled and found to be in adequate position. Attention was turned to the distal femur. Drill hole was placed intramedullary to the distal femur. Intramedullary distal femoral cutting guide was then placed and 8 mm was resected off the distal femur. It was found to be an adequate resection. Sizing guide was placed. It was found to be a size 4 femur. Epicondylar access holes were drilled using Vernon's line and epicondyles as reference. A 4 in 1 cutting block was then placed anterior posterior, and anterior posterior chamfer cuts were then completed and found to be adequate. Box cut was then completed for a size 4 femur and was found to be adequate. At this time, attention was turned to the tibia. The extramedullary tibial cutting guide was then impacted within the old fibers of the ACL and it was aligned with the center of the ankle. Pike was set for roughly 0 to 30 degrees. At this time, 9 mm was resected off the less affected lateral side. There was found to be an adequate resection. Medial and lateral meniscus were removed along with any posterior osteophytes. Sizing guide showed a size 3 tibia would have adequate coverage for a press-fit tibia. At this time, trial components were placed. A 9 mm trial spacer was placed. The patient had full extension and flexion and the patella was tracking centrally. At this time, the tibia was stamped and drilled in the proper rotation. The distal femoral holes were then drilled for a press-fit femur. Size 3 press-fit tibia was then impacted into place. A size 4 press-fit femur was then impacted into place. A 9 mm PS X3 polyethylene was then placed. The patient's knee had full extension and flexion with no signs of instability. A 29 x 9 mm asymmetric patella was then press-fit into place. At this time, tourniquet was deflated. 1 L of dilute Betadine solution along with 3 L of pulse lavage irrigation with Ancef was then irrigated through the knee. Topical tranexamic acid was placed along with vancomycin powder. #2 barbed suture was used for closure of the medial parapatellar arthrotomy, 2-0 Vicryl was used subcutaneously, and a running 4-0 Monocryl was used for the skin. Cranios was also used for the skin. The patient had a sterile soft dressing applied and was sent to the PACU in stable condition. [facility] /[id number]
== END 2017-08-09 14:53 | disposition home or self-care (01) | DRG 470 ==
LOC: JD.MS 08:52 → JD.OB 08:58 → JD.MS 08-09 14:52 → UNDODISIN 08-09 14:53
PROVIDERS: ADMIT Orthopaedic Surgery; ATTEND Orthopaedic Surgery
PROC: 0SRD0J9 Replacement of Left Knee Joint with Synthetic Substitute, Cemented, Open Approach (ICD-10-PCS; principal; 2017-08-08)
DX: M17.12 Unilateral primary osteoarthritis, left knee (principal); Z96.651 Presence of right artificial knee joint; K21.9 Gastro-esophageal reflux disease without esophagitis; I10 Essential (primary) hypertension; E78.2 Mixed hyperlipidemia; Z88.1 Allergy status to other antibiotic agents; Z88.6 Allergy status to analgesic agent; Z79.82 Long term (current) use of aspirin; Z79.899 Other long term (current) drug therapy; H54.7 Unspecified visual loss
CPT/HCPCS: 01402; 36415; 51798; 73560-26-LT; 73560-LT; 80053; 85027; 87641; 94762; 97110-GP; 97116-GP; 97162-GP; 97166-GO; 97530-GO; 97535-GO; 99221; 99231; A9270-GY; C1776; J0171; J0690; J0697; J1885; J2250; J2270; J2370; J2405; J2704; J3010; J3370; J3490; J7120

== ENCOUNTER 2017-09-28 14:33 | Emergency (ER) | payer MEDICARE, OTHER ==
--- NOTE | 2017-09-28 15:31 | EDM.PDOCBH ---
ED HPI GENERAL MEDICAL PROBLEM - General Chief Complaint: Behavioral/Psych Stated Complaint: DEPRESSION Time Seen by Provider: 09/28/17 15:06 Source of Information: Reports: Patient History Limitations: Reports: No Limitations - History of Present Illness INITIAL COMMENTS - FREE TEXT/NARRATIVE: 72-year-old female comes in with a chief complaint of feeling depressed. She states that she has a very remote history of depression that was severe enough that it required hospitalization. This was a long time ago. She has not been on any medications for depression in several years. States that she's been feeling very down for the past several days. There was no provoking factor. She also feels anxious. She's had very poor sleep. Total loss of appetite. Feels sad. No alcohol use. No overdose. No suicidal ideation. Feels safe at home. Lives with her . Unable to see her primary doctor until next week so came here. Denies recent illness. She did have a knee replacement that she has recovered well from and is off pain medication now. - Related Data Allergies Allergy/AdvReac Type Severity Reaction Status Date / Time amoxicillin AdvReac Nausea and Verified 09/28/17 15:05 Vomiting erythromycin base AdvReac Nausea and Verified 09/28/17 15:05 Vomiting morphine AdvReac Anxiety Verified 09/28/17 15:05 neomycin AdvReac Nausea Verified 09/28/17 15:05 Home Meds: Home Meds Biotin 5,000 mcg PO DAILY 08/05/17 [History] Ca Carbonate/Vitamin D3/Vit K [Calcium + D Soft Chewable Tab] 2 tab PO DAILY [History] Losartan/Hydrochlorothiazide [Losartan-HCTZ 100-12.5 MG] 1 tab PO DAILY [History] Metoprolol Succinate 25 mg PO DAILY 08/05/17 [History] Omeprazole 20 mg PO DAILY 08/05/17 [History] atorvaSTATin [Lipitor] 10 mg PO DAILY 08/05/17 [History] Aspirin [Ecotrin] 81 mg PO BID 09/28/17 [History] LORazepam 0.5 mg PO BID PRN #12 tablet 09/28/17 [Rx] PARoxetine HCl [Paxil] 10 mg PO DAILY #50 tablet 09/28/17 [Rx] Past Medical History HEENT History: Reports: Impaired Vision, Other (See Below) Other HEENT History: impacted cerumen, reading glasses Cardiovascular History: Reports: High Cholesterol, Hypertension Respiratory History: Reports: None Gastrointestinal History: Reports: GERD, Irritable Bowel Syndrome, Other (See Below) Other Gastrointestinal History: abdominal adhesions Genitourinary History: Reports: UTI, Recurrent WASTE BALER History: Reports: Other (See Below) Other OB/BYN History: vaginitis, ovarian cyst Musculoskeletal History: Reports: Arthritis, Other (See Below) Other Musculoskeletal History: leg pain, knee pain Neurological History: Reports: Migraines Psychiatric History: Reports: None Endocrine/Metabolic History: Reports: None Hematologic History: Reports: None Immunologic History: Reports: None Oncologic (Cancer) History: Reports: None Dermatologic History: Reports: Other (See Below) Other Dermatologic History: periorbital dermatitis - Past Surgical History Head Surgeries/Procedures: Reports: None Cardiovascular Surgical History: Reports: None Respiratory Surgical History: Reports: None GI Surgical History: Reports: Appendectomy, Cholecystectomy, Other (See Below) Other GI Surgeries/Procedures: repair of leaky bile duct, exploratory laparotomy Female Surgical History: Reports: Section, Tubal Ligation Endocrine Surgical History: Reports: None Neurological Surgical History: Reports: None Musculoskeletal Surgical History: Reports: Knee Replacement Oncologic Surgical History: Reports: None Social & Family History - Family History Family Medical History: Noncontributory - Tobacco Use Smoking Status *Q: Never Smoker Second Hand Smoke Exposure: No - Caffeine Use Caffeine Use: Reports: Coffee - Recreational Drug Use Recreational Drug Use: No Drug Use in Last 12 Months: No ED ROS GENERAL - Review of Systems Review Of Systems: See Below Constitutional: Denies: Fever Respiratory: Denies: Shortness of Breath Cardiovascular: Denies: Chest Pain GI/Abdominal: Denies: Abdominal Pain Psychiatric: Reports: Anxiety, Depression ED EXAM, BEHAVIORAL HEALTH - Physical Exam Exam: See Below Exam Limited By: No Limitations General Appearance: Alert, WD/WN, No Apparent Distress, Anxious Eye Exam: Bilateral Eye: Normal Inspection Ears: Normal External Exam Nose: Normal Inspection Throat/Mouth: Normal Inspection, Normal Oropharynx, Normal Voice, No Airway Compromise Head: Atraumatic, Normocephalic Neck: Normal Inspection, Supple, Non-Tender, Full Range of Motion Respiratory/Chest: No Respiratory Distress, Lungs Clear, Normal Breath Sounds Cardiovascular: Normal Peripheral Pulses, Regular Rate, Rhythm, No Murmur GI/Abdominal: Soft, Non-Tender, No Distention Back Exam: Normal Inspection Extremities: Normal Inspection Neurological: Alert, Normal Mood/Affect, Normal Cognition, Oriented x 3 Psychiatric: Alert, Normal Cognition, Oriented, Depressed Mood, Withdrawn. No: Suicidal Plan, Suicidal Thoughts Skin Exam: Warm, Dry, Intact, Normal color, No rash COURSE, BEHAVIORAL HEALTH COMP - Course Vital Signs: Last Vital Signs Temp 36.4 C 09/28/17 15:01 Pulse 80 09/28/17 15:01 Resp 18 09/28/17 15:01 BP 158/93 H 09/28/17 15:01 Pulse Ox 98 09/28/17 15:01 Orders, Labs, Meds: Laboratory Tests 09/28/17 09/28/17 09/28/17 Range/Units 16:40 16:40 16:40 WBC 12.28 H (3.98-10.04) K/mm3 RBC 4.86 (3.98-5.22) M/mm3 Hgb 13.5 (11.2-15.7) gm/L Hct 40.4 (34.1-44.9) % MCV 83.1 (79.4-94.8) fl MCH 27.8 (25.6-32.2) pg MCHC 33.4 (32.2-35.5) g/dl RDW Std Deviation 39.8 (36.4-46.3) fL Plt Count 387 H (182-369) K/mm3 MPV 9.4 (9.4-12.3) fl Neut % (Auto) 60.4 (34.0-71.1) % Lymph % (Auto) 24.3 (19.3-51.7) % [place] % (Auto) 14.1 H (4.7-12.5) % Eos % (Auto) 0.7 (0.7-5.8) Baso % (Auto) 0.3 (0.1-1.2) % Neut # (Auto) 7.41 H (1.56-6.13) K/mm3 Lymph # (Auto) 2.99 (1.18-3.74) K/mm3 [place] # (Auto) 1.73 H (0.24-0.36) K/mm3 Eos # (Auto) 0.09 (0.04-0.36) K/mm3 Baso # (Auto) 0.04 (0.01-0.08) K/mm3 Manual Slide Review Normal smear Sodium 137 (136-145) mEq/L Potassium 3.3 L (3.5-5.1) mEq/L Chloride 101 (98-107) mEq/L Carbon Dioxide 24 (21-32) mEq/L Anion Gap 15.3 H (5-15) BUN 20 H (7-18) mg/dL Creatinine 0.9 (0.55-1.02) mg/dL Est Cr Clr Drug Dosing 44.03 mL/min Estimated GFR (MDRD) > 60 (>60) mL/min BUN/Creatinine Ratio 22.2 H (14-18) Glucose 113 (83-115) mg/dL Calcium 10.5 H (8.5-10.1) mg/dL Total Bilirubin 0.5 (0.2-1.0) mg/dL AST 14 L (15-37) U/L ALT 18 (14-59) U/L Alkaline Phosphatase 101 (46-116) U/L Total Protein 8.6 H (6.4-8.2) g/dl Albumin 4.3 (3.4-5.0) g/dl Globulin 4.3 gm/dL Albumin/Globulin Ratio 1.0 (1-2) Free T4 1.57 H (0.76-1.46) ng/dL TSH 3rd Generation 1.804 (0.358-3.74) uIU/mL Salicylates 1.5 L (2.8-20) mg/dL Acetaminophen 0 L (10-30) ug/mL Ethyl Alcohol 0.00 (0.00) gm% Medications Discontinued Medications Generic Name Dose Route Start Last Admin Trade Name Freq PRN Reason Stop Dose Admin Lorazepam 0.5 mg 09/28/17 15:40 09/28/17 16:33 Ativan PO 09/28/17 15:41 0.5 mg ONETIME ONE Administration Paroxetine HCl 10 mg 09/28/17 15:41 09/28/17 16:33 Paxil PO 09/28/17 15:42 10 mg ONETIME ONE Administration Re-Assessment/Re-Exam: Patient is here with her at the bedside. She is depressed and anxious but does not have any suicide plan or suicidal thoughts. She is in a relationship with her who can also keep an eye on her. I think she is safe to go home with her . She hasn't been on any psychiatric medications in quite some time. We discussed starting a low-dose of paroxetine and also some lorazepam to help her over the short-term with sleep and anxiety. I made an appointment for her to see Judy gallardo on November 02 which is the next available psychiatry appointment. I also encouraged her to follow up with Dr. Gutiérrez next week. Discussed strict return precautions for worsening symptoms/suicidality. Labs are all unremarkable including thyroid studies. Departure - Departure Time of Disposition: 19:04 Disposition: Home, Self-Care 01 Clinical Impression: Depressive disorder - Discharge Information Prescriptions: LORazepam 0.5 mg PO BID PRN #12 tablet PRN Reason: anxiety or insomnia PARoxetine HCl [Paxil] 10 mg PO DAILY #50 tablet Referrals: Osvaldo Clancy MD [Primary Care Provider] - Forms: ED Department Discharge Additional Instructions: 1. Take paroxetine as prescribed. Dr. Gutiérrez may want to increase this dose next week if you are tolerating it OK. Take lorazepam as needed for anxiety or insomnia. This medication may make you sleepy or mildly confused so no driving while taking it. It is ok to take a second tablet of lorazepam tonight if you still can't fall asleep two hours after taking the first tablet. 2. Follow up with psychiatry clinic here on November 02 at 4pm with Judy Gallardo. Call [phone] if you need to change this appointment. 3. Return to the ED if you have worsening feelings of depression and anxiety or if you are feeling suicidal.
[2017-09-28] MEDS ORDERED: LORazepam 0.5 MG Tab PO ONE (15:40)
[2017-09-28] MEDS ORDERED: PARoxetine 20 MG Tab PO ONE (15:41)
[2017-09-28 17:29] LABS: ACETAMINOPHEN 0 ug/mL (10-30)
== END 2017-09-28 18:05 | disposition home or self-care (01) ==
LOC: JD.ED 14:33
DX: F32.9 Major depressive disorder, single episode, unspecified (principal); I10 Essential (primary) hypertension; E78.00 Pure hypercholesterolemia, unspecified; Z88.1 Allergy status to other antibiotic agents; Z88.5 Allergy status to narcotic agent; Z79.899 Other long term (current) drug therapy
CPT/HCPCS: 36415; 80053; 84439; 84443; 85025; 99284; A9270; G0480; 99283

== ENCOUNTER 2022-06-16 16:22 | Emergency (ER) | payer MEDICARE, OTHER ==
[2022-06-16] MEDS ORDERED: Acetaminophen/HYDROcodone 325-5 MG Tab PO ONE (17:25)
== END 2022-06-16 19:41 | disposition home or self-care (01) ==
LOC: JD.ED 16:22
DX: S22.42XA Multiple fractures of ribs, left side, initial encounter for closed fracture (principal); I10 Essential (primary) hypertension; Z88.1 Allergy status to other antibiotic agents; Z88.6 Allergy status to analgesic agent; Z79.899 Other long term (current) drug therapy; Z90.49 Acquired absence of other specified parts of digestive tract; W10.9XXA Fall (on) (from) unspecified stairs and steps, initial encounter
CPT/HCPCS: 71250; 73502; 99284; A9270